=== PATIENT | female | born 1970 | race Caucasian/White ===

== ENCOUNTER → 2018-07-05 08:38 | Outpatient (CLI) | payer BC, SELFPAY ==
--- NOTE | 2018-07-05 08:41 | BI_ITS ---
MAMMOGRAPHY - BILATERAL SCREENING 3-D FERNANDO SYNTHESIS REASON FOR EXAM: Female, 47 years old. Bilateral Screening 3-D tomosynthesis PERTINENT HISTORY: Has been using control pills for 20 years. TECHNIQUE: 2-D mammograms and 3-D Fernando synthesis of the breast (s) were performed. CAD was performed. COMPARISON: April 30, 2017, April 01, 2016 FINDINGS: The breast composition is composed of scattered fibroglandular density. Scattered benign calcifications are stable. There are stable normal-appearing lymph nodes in both axillae. No dense spiculated masses or suspicious microcalcifications are identified. No architectural distortion is identified. There is no skin thickening or retraction. There has been no significant change since the prior study. BI/SCREENING MAMM (CAD), BILAT IMPRESSION: No mammographic signs of malignancy. Routine yearly mammograms recommended. ASSESSMENT CATEGORY: BIRADS Category 2: Benign. A letter regarding these results will be sent to the patient by the facility within 30 days. FOLLOW UP RECOMMENDATION: Yearly follow up mammogram recommended. (A) Approximately 10% of breast cancers are not detected by mammography. A normal mammogram should not delay biopsy of a clinically suspicious abnormality. Electronically Signed: Stu Chandra MD at 17:46 EDT , Service support ,
== END ==
PROVIDERS: Family Provider Family Medicine; PCP Family Medicine; Referring Provider Obstetrics & Gynecology; Visit Provider Obstetrics & Gynecology
DX: Z12.31 Encounter for screening mammogram for malignant neoplasm of breast (principal)
CPT/HCPCS: 77063; 77067

== ENCOUNTER → 2019-09-26 | Outpatient (CLI) | payer BC, SELFPAY ==
[2019-09-30 11:35] LABS: HPV Reflexed? NOT INDICATED
== END | disposition home or self-care (01) ==
LOC: LABSPEC 09-27 09:18
PROVIDERS: PCP Family Medicine; Visit Provider Obstetrics & Gynecology
DX: Z12.4 Encounter for screening for malignant neoplasm of cervix (principal)
CPT/HCPCS: 88175; G0145

== ENCOUNTER → 2019-12-28 10:18 | Outpatient (CLI) | payer BC, SELFPAY ==
--- NOTE | 2019-12-28 10:21 | BI_ITS ---
MAMMOGRAPHY - BILATERAL SCREENING REASON FOR EXAM: Female, 49 years old. Routine annual screening examination. PERTINENT HISTORY: Non-contributory. TECHNIQUE: Digital bilateral breast fernando (3D mammographic acquisition) in the CC and MLO projections. 2-D mediolateral oblique (MLO) and craniocaudad (CC) views of both breasts were obtained. CAD: Full Field Digital Mammography with Computer Added Detection was performed. COMPARISON: Comparison is made with prior study of 07/05/2018 and 04/30/2017 FINDINGS: Breast Composition: The breasts are heterogeneously dense, which may obscure small masses. There are no dominant masses or suspicious calcifications. Stable benign appearing bilateral axillary lymph nodes. No other significant abnormalities are identified. There has been no significant change since the prior study. BI/SCREEN MAMM (CAD) W/FERNANDO BILAT IMPRESSION: Stable bilateral screening mammogram. Yearly follow-up mammogram recommended. (A) ASSESSMENT CATEGORY: BIRADS Category 2: Benign. A letter regarding these results will be sent to the patient by the facility within 30 days. Approximately 10% of breast cancers are not detected by mammography. A normal mammogram should not delay biopsy of a clinically suspicious abnormality. [id number] Electronically Signed: Harrison Valdez, at 12:01 EDT , Service support ,
== END ==
PROVIDERS: PCP Family Medicine; Referring Provider Obstetrics & Gynecology; Visit Provider Obstetrics & Gynecology
DX: Z12.31 Encounter for screening mammogram for malignant neoplasm of breast (principal)
CPT/HCPCS: 77063; 77067

== ENCOUNTER → 2021-02-17 12:54 | Outpatient (CLI) | payer BC, SELFPAY ==
--- NOTE | 2021-02-17 12:58 | BI_ITS ---
MAMMOGRAPHY - BILATERAL SCREENING REASON FOR EXAM: Female, 50 years old. Routine annual screening examination. PERTINENT HISTORY: Non-contributory. TECHNIQUE: Digital bilateral breast fernando (3D mammographic acquisition) in the CC and MLO projections. 2-D mediolateral oblique (MLO) and craniocaudad (CC) views of both breasts were obtained. CAD: Full Field Digital Mammography with Computer Added Detection was performed. COMPARISON: Comparison is made with prior examination dated 12/28/2019 and 07/05/2018. FINDINGS: Breast Composition: The breasts are heterogeneously dense, which may obscure small masses. There are no dominant masses or suspicious calcifications. Stable benign-appearing bilateral axillary lymph nodes. No other significant abnormalities are identified. There has been no significant change since the prior study. BI/SCRN MAMM (CAD)W/FERNANDO BILAT IMPRESSION: Stable bilateral screening mammogram. Yearly follow-up mammogram recommended. (A) ASSESSMENT CATEGORY: BIRADS Category 2: Benign. A letter regarding these results will be sent to the patient by the facility within 30 days. Approximately 10% of breast cancers are not detected by mammography. A normal mammogram should not delay biopsy of a clinically suspicious abnormality. [id number] Electronically Signed: Harrison Valdez MD at 14:06 EDT , Service support ,
== END ==
PROVIDERS: PCP Family Medicine; Referring Provider Obstetrics & Gynecology; Visit Provider Obstetrics & Gynecology
DX: Z12.31 Encounter for screening mammogram for malignant neoplasm of breast (principal)
CPT/HCPCS: 77063; 77067

== ENCOUNTER → 2022-02-23 | Outpatient (CLI) | payer BC, SELFPAY ==
[2022-03-02 12:17] LABS: HPV APTIMA, High Risk Negative (Negative)
== END | disposition home or self-care (01) ==
LOC: LABSPEC 12:09
PROVIDERS: PCP Family Medicine; Visit Provider Student in an Organized Health Care Education/Training Program
DX: Z12.4 Encounter for screening for malignant neoplasm of cervix (principal)
CPT/HCPCS: 87624; 88175; G0145

== ENCOUNTER → 2022-04-27 | Outpatient (CLI) | payer BC, SELFPAY ==
--- NOTE | 2022-04-27 10:50 | BI_ITS ---
MAMMOGRAPHY - BILATERAL SCREENING REASON FOR EXAM: Female, 51 years old. Routine annual screening examination. PERTINENT HISTORY: Non-contributory. TECHNIQUE: Digital bilateral breast fernando (3D mammographic acquisition) in the CC and MLO projections. 2-D mediolateral oblique (MLO) and craniocaudad (CC) views of both breasts were obtained. CAD: Full Field Digital Mammography with Computer Added Detection was performed. COMPARISON: Comparison is made with prior study dated 02/17/2021 and 12/28/2019. FINDINGS: Breast Composition: The breasts are heterogeneously dense, which may obscure small masses. There are no dominant masses or suspicious calcifications. Stable benign-appearing bilateral axillary lymph nodes. No other significant abnormalities are identified. There has been no significant change since the prior study. BI/SCRN MAMM (CAD)W/FERNANDO BILAT IMPRESSION: Stable bilateral screening mammogram. Yearly follow-up mammogram recommended. (A) ASSESSMENT CATEGORY: BIRADS Category 2: Benign. A letter regarding these results will be sent to the patient by the facility within 30 days. Approximately 10% of breast cancers are not detected by mammography. A normal mammogram should not delay biopsy of a clinically suspicious abnormality. [id number] Electronically Signed: Harrison Valdez MD at 12:34 EST ,
== END | disposition home or self-care (01) ==
LOC: OPBI 10:49
PROVIDERS: PCP Family Medicine; Referring Provider Student in an Organized Health Care Education/Training Program; Visit Provider Student in an Organized Health Care Education/Training Program
DX: Z12.31 Encounter for screening mammogram for malignant neoplasm of breast (principal)
CPT/HCPCS: 77063; 77067

== ENCOUNTER → 2023-08-23 | Outpatient (CLI) | payer BC, SELFPAY ==
--- NOTE | 2023-08-23 13:20 | BI_ITS ---
MAMMOGRAPHY - BILATERAL SCREENING REASON FOR EXAM: Female, 52 years old. Routine annual screening examination. PERTINENT HISTORY: Non-contributory. TECHNIQUE: Digital bilateral breast fernando (3D mammographic acquisition) in the CC and MLO projections. 2-D mediolateral oblique (MLO) and craniocaudad (CC) views of both breasts were obtained. CAD: Full Field Digital Mammography with Computer Added Detection was performed. COMPARISON: Comparison is made with prior study April 27, 2022 and February 17, 2021. FINDINGS: Breast Composition: The breasts are heterogeneously dense, which may obscure small masses. There are no dominant masses or suspicious calcifications. Stable small benign appearing bilateral axillary lymph nodes. No other significant abnormalities are identified. There has been no significant change since the prior study. BI/SCRN MAMM (CAD)W/FERNANDO BILAT IMPRESSION: Stable bilateral screening mammogram. Yearly follow-up mammogram recommended. (A) ASSESSMENT CATEGORY: BIRADS Category 2: Benign. A letter regarding these results will be sent to the patient by the facility within 30 days. Approximately 10% of breast cancers are not detected by mammography. A normal mammogram should not delay biopsy of a clinically suspicious abnormality. [id number] Electronically Signed: Harrison Valdez MD at 14:39 EDT ,
== END | disposition home or self-care (01) ==
LOC: OPBI 13:20
PROVIDERS: PCP Family Medicine; Referring Provider Nurse Practitioner Women's Health; Visit Provider Nurse Practitioner Women's Health
DX: Z12.31 Encounter for screening mammogram for malignant neoplasm of breast (principal)
CPT/HCPCS: 77063; 77067

== ENCOUNTER → 2023-09-27 | Outpatient (CLI) | payer BC, SELFPAY ==
[2023-09-27 13:34] LABS: Follicle Stimulating Hormone 39.6 mIU/mL
== END | disposition home or self-care (01) ==
LOC: LAB 12:20
PROVIDERS: PCP Family Medicine; Referring Provider Nurse Practitioner Women's Health; Visit Provider Nurse Practitioner Women's Health
DX: N91.2 Amenorrhea, unspecified (principal)
CPT/HCPCS: 36415; 82670; 83001

== ENCOUNTER → 2023-11-10 | Outpatient (CLI) | payer BC, SELFPAY ==
--- NOTE | 2023-11-10 14:22 | US_ITS ---
INDICATION: PMB EXAMINATION: Ultrasound US Pelvis Non OB Complete With Transvaginal Imaging TECHNIQUE: Transabdominal and transvaginal pelvic ultrasound was performed. Grayscale and color flow Doppler evaluation of the adnexa. COMPARISON: No relevant prior comparison study available FINDINGS: UTERUS: Anteverted. The uterus measures 7.4 x 4.3 x 4.8 cm. There is a fibroid identified at the uterine fundal myometrium measuring 1.7 cm. Heterogeneous appearance of the uterine parenchyma limits visualization of the endometrium. The endometrial stripe measures 0.3 cm in AP diameter which is within normal limits. RIGHT OVARY: Not visualized. LEFT OVARY: 1.6 x 1.6 x 1.1 cm. Non-enlarged, normal echogenicity. There is Doppler vascularity seen. FREE FLUID: None. US/Pelvic w/ Transvaginal IMPRESSION: No endometrial thickening. Uterine fibroid identified with heterogeneous appearance of the uterus. Electronically Signed: Jey Henry MD at 17:03 EDT ,
== END | disposition home or self-care (01) ==
LOC: US 14:20
PROVIDERS: PCP Family Medicine; Referring Provider Nurse Practitioner Women's Health; Visit Provider Nurse Practitioner Women's Health
DX: N95.0 Postmenopausal bleeding (principal)
CPT/HCPCS: 76830; 76856

== ENCOUNTER → 2023-11-24 | Outpatient (CLI) | payer BC, SELFPAY ==
--- NOTE | 2023-11-24 | EMB_PTH ---
PATIENT: CARLOS GONZALEZ LOC: [facility] U#:[id number] AGE/SX: 53/F ROOM: RE11/24/[address]: MARTINA Vaca : 1970 BED: DIS: 11/24/2023 SPEC #: [id number] RECD: 11/24/23 12:28 STATUS: ERMELINDA REWhitney #: [id number] ERIC: 11/24/23 00:[address]: Rizwana Arzate NP DEPT: SURGICAL PATHOLOGY RECD BY: Jaron Penaloza ENTERED: 11/24/23 13:35 SP TYPE: ENDOM BX/C STEPHANY DR: Dr. Nena Hoang MD Tissues: Endometrium, NOS Procedures: Surgery Specimen Level IV HEADER OPERATION: Endometrial biopsy PRE-OP DIAGNOSIS: Postmenopausal bleeding TISSUE SUBMITTED: Endometrial lining MICROSCOPIC DIAGNOSIS Endometrial biopsy: Proliferative endometrium. Fragments of benign endocervical mucosa. SJ/mr 11/25/2023 MICROSCOPIC DESCRIPTION Slides are reviewed. GROSS DESCRIPTION Received is one container labeled with the patient's name and not further designated. The specimen consists of multiple irregular fragments of ross mucoid tissue that in aggregate measure 2.5 x 2.0 x 0.1 cm. The specimen is totally submitted in one cassette. LEVY/ 11/24/2023 TC:4 CPT:17439
== END | disposition home or self-care (01) ==
LOC: LABSPEC 12:36
PROVIDERS: PCP Family Medicine; Referring Provider Nurse Practitioner Women's Health; Visit Provider Nurse Practitioner Women's Health
DX: N95.0 Postmenopausal bleeding (principal)
CPT/HCPCS: 88305

== ENCOUNTER → 2025-01-16 | Outpatient (CLI) | payer BC, SELFPAY | END | disposition home or self-care (01) | LOC: OPBI 12:03 | PROVIDERS: PCP Family Medicine; Referring Provider Nurse Practitioner Women's Health; Visit Provider Nurse Practitioner Women's Health | DX: Z12.31 Encounter for screening mammogram for malignant neoplasm of breast (principal) | CPT/HCPCS: 77063; 77067 ==